=== PATIENT | male | born 1985 | race Caucasian/White ===

== ENCOUNTER 2021-12-10 11:52 | Emergency (ER) | payer OTHER ==
[~2021-12-10] VITALS: Wt 90.7 kg
[2021-12-10] MEDS ORDERED: BUPRENORPHINE-1 EACH SL (12:09)
[2021-12-10 12:45] LABS: BILIRUBIN Negative (Negative); BLOOD Negative (Negative); CLARITY Clear (Clear); COLOR Yellow (Yellow); GLUCOSE Negative (Negative); KETONE Negative (Negative); LEUKO ESTERASE Negative (Negative); NITRITE Negative (Negative); PH 7.5 (4.5-8.0); SPECIFIC GRAVITY <= 1.005 (1.001-1.030); UROBILINOGEN 0.2 E.U./dl (0.0-1.0)
[2021-12-10 13:03] LABS: URINE AMPHETAMINES < 1000 (1000ng/ml); URINE BARBITURATES < 200 (200ng/ml); URINE BENZODIAZEPINES < 200 (200ng/ml); URINE CANNABINOIDS (THC) < 50 (50ng/ml); URINE COCAINE < 300 (300ng/ml); URINE METHADONE < 300 (300ng/ml); URINE OPIATES < 300 (300ng/ml)
[2021-12-10 13:06] LABS: URINE PHENCYCLIDINE < 25 (25ng/ml)
[2021-12-10 13:13] LABS: EPITHELIAL CELLS 0-2; WBC 0-2 wbc/hpf (0-5)
[2021-12-10] MEDS ORDERED: AMOXICILLIN875 MG PO (14:33)
== END 2021-12-10 15:13 | disposition home or self-care (01) ==
LOC: ED 11:52
PROVIDERS: Nurse Practitioner Family
DX: K08.89 Other specified disorders of teeth and supporting structures (principal); F41.9 Anxiety disorder, unspecified